=== PATIENT | female | born 1955 | race Caucasian/White ===

== ENCOUNTER → 2022-10-09 | Outpatient (CLI) | payer OTHER ==
[~2022-10-09] MED LIST: PERCOT PO
[2022-10-09 09:30] LABS: Basophils # (auto) 0.1 10 ^3/uL (0-0.2); Basophils % (auto) 0.9 % (0.0-2.0); Eosinophils # (auto) 0.1 10 ^3/uL (0-0.8); Eosinophils % (auto) 1.9 % (0.0-7.0); Hematocrit 32.2 % (36.0-46.0); Hemoglobin 10.4 g/dL (12.2-16.2); Lymphocytes # (auto) 1.7 10 ^3/uL (0.4-5.4); Lymphocytes % (auto) 23.6 % (10.0-50.0); Mean Corpuscular Hemoglobin 29.2 pg (28.0-32.0); Mean Corpuscular Hgb Conc. 32.5 g/dL (32.0-36.0); Mean Corpuscular Volume 89.9 fL (80.0-100.0); Monocytes # (auto) 0.5 10 ^3/uL (0-1.3); Monocytes % (auto) 6.6 % (0.0-12.0); Neutrophils # (auto) 4.8 10 ^3/uL (1.6-8.6); Red Blood Cells 3.58 10^6/uL (4.0-5.20); Red Cell Distribution Width 15.6 % (11.8-14.3); White Blood Cell 7.2 10^3/uL (4.4-10.8)
[2022-10-09 10:39] LABS: BUN/Creatinine Ratio 21.4; Calcium 9.9 mg/dL (8.5-10.1); Potassium 4.6 mmol/L (3.5-5.1)
[2022-10-09 15:23] LABS: Pre Albumin 32.2 mg/dL (20.0-40.0)
== END | disposition home or self-care (01) ==
LOC: LAB 09:17
PROVIDERS: ATTEND Surgery
DX: S36.13XA Injury of bile duct, initial encounter (principal); X58.XXXA Exposure to other specified factors, initial encounter; Y93.89 Activity, other specified; Y92.89 Other specified places as the place of occurrence of the external cause; Y99.8 Other external cause status
CPT/HCPCS: 36415; 80048; 82040; 85025